=== PATIENT | male | born 1935 | race Two or more races ===

== ENCOUNTER 2017-07-10 11:46 | Emergency (ER) | payer MEDICARE ==
[~2017-07-10] VITALS: Ht 172.7 cm; Wt 70.8 kg
[2017-07-10 11:51] VITALS: Ht 172.7 cm; Wt 70.8 kg
[2017-07-10 13:40] VITALS: BP 167/74
== END 2017-07-10 13:40 | disposition home or self-care (01) ==
LOC: ED 11:46
DX: T85.9XXA Unspecified complication of internal prosthetic device, implant and graft, initial encounter (principal); N40.1 Benign prostatic hyperplasia with lower urinary tract symptoms; I10 Essential (primary) hypertension; E11.9 Type 2 diabetes mellitus without complications